=== PATIENT | male | born 1945 | race Caucasian/White ===

== ENCOUNTER 2016-08-25 10:00 | Observation (INO) | payer MEDICARE, OTHER ==
[~2016-08-25] VITALS: Ht 182.9 cm; Wt 104.3 kg
--- NOTE | ~2016-08-25 | ECHO ---
Transthoracic Echocardiography Report (TTE) Demographics Patient Name FIORDALIZA GALVEZ Date of Study 08/25/2016 D Patient Number [id number] Visit Number [id number] Date of 1945 Room Number G6338 Gender Male Number Age 71 year(s) Referring Paulo Patterson Header Dock Grisel Hinds, Physician RT,RVT,RDCS Physician Interpreting Paulo Patterson Rn Angiography Physician MD Supervising Ordering Paulo Patterson MD/MLP Physician MD Nurse Stress Anesthesiologist Physician Conclusions Contractility Score Summary Normal Left Ventricular contractility was noted. Summary Technically difficult study. Normal LV/RV size and systolic function. The estimated left ventricular ejection fraction is 65%. No significant valvular abnormalities. No evidence of pericardial effusion. Procedure Type of Study TTE procedure:2D Echocardiogram, M-Mode, Doppler , Color Doppler. Procedure Date Date: 08/25/2016 Start: 02:50 PM Study Location: Inpatient Portable Technical Quality: Adequate visualization Indications:Unstable angina. Additional Indications:Post Stent. Appropriate Use Criteria: 9 Patient Status: Routine HR: 81 bpm BP: 164/93 mmHg Allergies - No known allergies. M-Mode/2D Measurements LV Diastolic Dimension: 4.4 cm LV Systolic Dimension: 2.58 cm LV PW Diastolic: 1.53 cm LV Septum Systolic: 2.84 cm Cardiac Output: 8.16 l/min AO Root Dimension: 4.5 cm EF Estimated: 65 % LVOT: 2.1 cm LVOT VTI: 29.1 cm LV Stroke volume: 100.74 ml Doppler Measurements AV Peak Velocity: 1.58 m/s MV Peak E-Wave: 0.57 m/s AV Peak Gradient: 9.99 mmHg MV Peak A-Wave: 0.6 m/s AV Mean Gradient: 6 mmHg MV E/A Ratio: 0.94 LVOT Peak Velocity: 1.47 m/s MV P1/2t: 77 msec TR Gradient:10.89 mmHg PV Peak Velocity: 0.71 m/s Estimated RAP:10 mmHg PV Peak Gradient: 2.03 mmHg Estimated RVSP: 21 mmHg Estimated PASP: 20.89 mmHg E' Septal Velocity: 0.06 m/s A' Septal Velocity: 0.06 m/s MV E/E' Ratio: 10 Findings Left Ventricle Normal left ventricle size and function. Right Ventricle Normal right ventricle structure and function. Left Atrium Normal left atrial size. Right Atrium Normal right atrial size. IVC imaging is consistent with normal RA pressures. Mitral Valve Normal mitral valve structure and function. Trace MR. Aortic Valve Mild AV sclerosis. Tricuspid Valve Trivial tricuspid regurgitation by color Doppler. Pulmonic Valve PV is not well seen. Pericardial Effusion No evidence of pericardial effusion. Miscellaneous Visualized portions of the aortic root and ascending aorta appear normal in size. Pleural Effusion No evidence of pleural effusion. Contractility Score LV regional wall motion:(0-Non visualized 1-Normal 2-Hypokinesis 3-Akinesis 4-Dyskinesis 5-Aneurysm) Signature dtt: TUNDE BOWEN dtd: 08/25/16 [id number] Physician Self Edit
--- NOTE | ~2016-08-25 | CATH ---
Cardiac Diagnostic + PCI Report Demographics Patient Name LEONOR MANCERA Gender Male D Date of 1945 Age 71 year(s) Patient Number [id number] Date of Study 08/25/2016 Visit Number [id number] Room Number G6[address] [place] [id number] Ht 182.88 cm Wt 106 kg Referring Drew Steele Primary Physician Physician MD Jarrod Fitzgerald MD Performing [facility] Secondary Physician Physician Yesenia GRIFFIN Diagnostic [facility] Assisting Physician Physician Yesenia GRIFFIN Interventional [facility] Physician Fashion Intern Physician Yesenia GRIFFIN Findings and Conclusions Diagnostic Findings and Conclusion Obstructive lesion in mid RCA with 80% stenosis. Unstable angina. LAD and OM stents are patent. Diagnostic Recommendations PCI of RCA due to patient having ongoing chest pain and obstructive lesion in mid RCA \E\R\E\80%. Interventional Findings and Conclusion S/P PCI of mid RCA with 4.0 X 28 Promus Permier, post dilated RCA stent with NC 4.0 balloon at 18 rashaun. Interventional Recommendations Continue regular medications. Patient will be observed overnight. Hydration and followup creatinine. Continue current medications. Patient has been instructed to not lift anything more than 5 pounds for 1 week. I would like to thank for the opportunity to participate in the care of Mr. Meadows . Aggressive risk factor management. Aggressive medical therapy for coronary artery disease. ASA. Statin. Beta Vamshi. Aggressive control of blood pressure. Dual Anti-platelet therapy. Lipid lowering medication: statin will be given. Cardiac diet . Optimization of medical therapy as an outpatient. Referral to Cardiac Rehabilitation now and at discharge . The patient will be observed in telemetry overnight and if stable, the patient will be allowed to return home tomorrow. Procedure Description The patient was brought to the diagnostic cardiac catheterization-EP laboratory by emergency personal. Physician deemed procedure as EMERGENT. The planned puncture-incision site(s) were shaved and prepped with ChloraPrep and draped in the usual sterile manner. Conscious sedation, supplemental oxygen, and pain control medications were delivered by a registered nurse under physician guidance. Surface ECG rhythm, blood pressure measurement, and pulse oximetry were monitored throughout the procedure. Arterial access. The access site was infiltrated with lidocaine. The vessel was entered with the Seldinger technique. A sheath was advanced into the vessel and used for catheter placement. Selective right coronary angiography. A catheter was advanced into the right coronary vessel ostium under fluoroscopic guidance. Contrast was injected by hand. Images were obtained in multiple projections. Selective left coronary angiography. A catheter was advanced into the left coronary vessel ostium under Fluoroscopic guidance. Contrast was injected by hand. Images were obtained in multiple projections. Angioplasty and Stent Placement: A guiding catheter was used to intubate the vessel. A 0.14 wire was then used to cross the lesion. A balloon catheter was placed across the lesion and inflated. The balloon catheter was then removed. A Drug Eluting Stent was placed and inflated. Post placement angiograms were performed. Arterial artery hemostasis was achieved. The patient was transferred to a regular nursing floor via cart accompanied by a nurse. The patient left the laboratory in stable condition. Diagnostic Cath Status: Urgent Interventional Cath Status: Urgent Procedure Procedure Type Diagnostic procedure:Angiography:, Coronary Angios PCI procedure:Drug Eluting Coronary Stent:, RCA Indications: Unstable angina. The procedure was explained in detail to the patient. Risks, complications and alternative treatments were reviewed. Written consent was obtained. Medications Reviewed with Patient prior to Procedure. Angiographic Findings Dominance: Right Cardiac Arteries and Lesion Findings LMCA: Lesion on LMCA: Distal subsection.10% stenosis . LAD: Normal (0% Stenosis).There is a previous stent on Mid LAD Mid subsection showing wide patency. There is a previous stent on Prox LAD showing wide patency. LCx: Normal (0% Stenosis).There is a previous stent on Mid CX showing wide patency. RCA: PL and PDA normal Lesion on Mid RCA: Mid subsection.80% stenosis 28 mm length reduced to 0%. Pre procedure ALAN III flow was noted. Post Procedure ALAN III flow was present. The guidewire cross was successful.The lesion was diagnosed as a high risk lesion.Culprit lesion. Devices used - Runthrough NS .014 x 180. Number of passes: 1. - Emerge Balloon 2.5 x 12. 1 inflation(s) to a max pressure of: 14 rashaun. - Promus Premier 4.0 x 28 Stent. 2 inflation(s) to a max pressure of: 16 rashaun. - NC Emerge Balloon 4.0 x 15. 2 inflation(s) to a max pressure of: 18 rashaun. Coronary Tree Procedure Data Procedure Date Date: 08/25/2016Start: 11:52 AMEnd: 01:00 PM Entry Locations - Retrograde Percutaneous access was performed through the Right Radial artery (Primary location). A 6 Fr sheath was inserted. Hemostasis was successfully obtained using Mechanical Compression. Closure Comments: Vinayak Pendleton applied - 20mL of air. Procedure Medications Order and Administration + + + + + !Time !Medication !Dosage !Route ! + + + + + !08/25/2016 11:41 !Fentanyl !50 mcg !I.V. ! !AM ! ! ! ! + + + + + !08/25/2016 11:41 !Zofran !4 mg !I.V. ! !AM ! ! ! ! + + + + + 08/25/2016 11:43 !Versed !1 mg !I.V. ! !AM ! ! ! ! + + + + + !08/25/2016 11:48 !Oxygen !3 l/min !NC ! !AM ! ! ! ! + + + + + !08/25/2016 11:55 !Versed !1 mg !I.V. ! !AM ! ! ! ! + + + + + 08/25/2016 12:08 !Verapamil !3 mcg !I.A. ! !PM ! ! ! ! + + + + 08/25/2016 12:23 !Angiomax (Bivalirudin) !80 mg !I.V. bolus ! !PM !(ACC_5) ! ! ! + + + + 08/25/2016 12:23 !Angiomax (Bivalirudin) !1.75 mg/kg/hr!I.V. drip ! !PM !(ACC_5) ! ! ! + + + + + !08/25/2016 12:52 !Brilinta (Ticagrelor) !180 mg !P.O. ! !PM !(ACC_20) ! ! ! + + + + + !08/25/2016 12:54 !Oxygen ! !NC ! !PM ! ! ! ! + + + + + Devices Used - A5 Fr. BS JR 4 Diag. Catheterwas used for:Right coronary angiography. - A5 Fr. BS JL 3.5 Diag. Catheterwas used for:Left coronary angiography. - A6 Fr. JR4 Guide Catheterwas used for:Fractional Flow Bethune measurments. - A6 Fr. Guidlinerwas used for:RCA Intervention. Contrast Material - Isovue 32748 ml Fluoroscopy Time: Diagnostic: 9:42 minutes. Total: 9:42 minutes. Fluoroscopy Dose: Diagnostic: 1632 mGy. Total: 1632 mGy. Estimated Blood Loss: 20 ml. Additional [facility] PCI Information PCI Indication:PCI for high risk Non-STEMI or unstable angina. Medical History Performed Procedures and Imaging Results - No [facility] stress or imaging studies were performed. Allergies - No known allergies. Risk Factors The patient risk factors include:prior PCI;peripheral arterial disease, treated hypercholesterolemia, hypertension, last creatinine: 0.9 mg/dl, creatinine clearance: 112.87 ml/min, dyslipidemia and prior CT . Admission Data Admission Date: 08/25/2016 Admission Time: 10:45 AM Admit Source: Transfer [facility] Insurance Payors: Medicare. Admission Medications + +------+------+ + + + + !Medication !Dosage!Times !Last !Last !Administered !Comments ! ! ! !Per !Delivery !Delivery ! ! ! ! ! !Day !Date !Time ! ! ! + +------+------+ + + + + !Beta ! ! ! ! !Yes ! ! !Vamshi ! ! ! ! ! ! ! !(any) ! ! ! ! ! ! ! + +------+------+ + + + + !Statin ! ! ! ! !Yes ! ! !(any) ! ! ! ! ! ! ! + +------+------+ + + + + Clinical Evaluation Leading to Procedure - The patient's CAD presentation was assessed as: Unstable angina. - The patient's anginal syndrome during the past two weeks was assessed as: Class IV according to the [place] Cardiovascular Society Classification System (CCS). Anti-anginal medications were prescribed during the past two weeks. The medication is: Beta Blockers. Hemodynamics Condition: Rest O2 Consumption: Estimated: 268.30Heart Rate: 76 bpm Pressures (mmHg) +-----+ + !Site !Pressure ! +-----+ + !AO !125/70 (95) ! +-----+ + Shunts Oxygen Values O2 Capacity 182.24 O2 Consumption 268.3 Discharge Data Discharge Date: 08/26/2016 Hospital Status: Inpatient Signatures dtt: YESENIA BOWEN dtd: 08/25/16 1152 Physician Self Edit
--- NOTE | ~2016-08-25 | HP ---
PATIENT'S NAME: LEONOR FIORDALIZA [facility] AGE: 71 Y [address] ROOM: [place] [address] LOCATION: GPCU ADMIT DATE: 08/25/2016 History & Physical DISCHARGE DATE: FAMILY PHYSICIAN: PHYSICIAN, UNKNOWN ATTENDING PHYSICIAN: TUNDE BOWEN DATE OF SERVICE: CHIEF COMPLAINT: Chest pain. HISTORY OF PRESENTING ILLNESS: A 71-year-old male complains of chest pain that is substernal and it is also tight. It started last night, and the pain was about 3 on pain scale. He has had recurrent episodes of this that woke him up from his sleep about two to three times last night. They lasted about 20 minutes or so. He does not have any diaphoresis, nausea, or vomiting. He had recurrent chest pain again this morning that woke him up from his sleep, and he finally decided to get evaluated in his local Emergency Room at [facility]. He is a patient who follows in [place]; however, the patient is moving to [place], and requested to be transferred to [facility] if he needs further workup. He has had history of PR and stents to his OM as well as LAD in the past. This pain reminds him of the pain he had when he had his heart attack. During interview, the patient had pain about 4 on pain scale, and he reported it was getting worse. So, it was decided to take him urgently to the Cardiac Daytime Babysitter. The patient does not have any fever, chills, or changes in his strength sensation. No nausea, vomiting, diaphoresis, constipation, recent skin rashes, or travel. He does not have any headaches. No changes in speech. He does not have any changes in his vision. No sinus discharge. No other acute complaints at this visit. REVIEW OF SYSTEMS: All review of systems were discussed with the patient. Pertinent positives and negatives as mentioned in the history of presenting illness. PAST MEDICAL HISTORY: 1. PR in 2000 with stents x3. 2. Hypertension. 3. Hyperlipidemia. PAST SURGICAL HISTORY: [facility] AGE: 71 Y [address] ROOM: [address] [place] [id number] LOCATION: GPCU ADMIT DATE: 08/25/2016 History & Physical DISCHARGE DATE: FAMILY PHYSICIAN: PHYSICIAN, UNKNOWN ATTENDING PHYSICIAN: TUNDE BOWEN 1. He had AAA repair in 2010. 2. He also had rotator cuff surgery on the left in 2011 and right side in 2013. ALLERGIES: NO KNOWN DRUG ALLERGIES. MEDICATIONS: He is on 1. Zocor 80 mg daily. 2. Omeprazole 20 daily. 3. Metoprolol 25 b.i.d. 4. Feosol 325 daily. 5. Aspirin 81 daily. 6. Multivitamins one tablet daily. SOCIAL HISTORY: The patient is and retired. He has two kids. The patient does not smoke. No illicit drug abuse or alcohol abuse. FAMILY HISTORY: No history of premature coronary artery disease or sudden cardiac . PHYSICAL EXAMINATION: VITAL SIGNS: Blood pressure was 160/80, afebrile, pulse was 70, respirations were 16, and O2 sats were 95% on room air. HEENT: PERRLA. Extraocular movements are intact. Atraumatic. Mucous membranes are moist. GENERAL: The patient is not in any apparent distress. He is alert and awake and oriented to time, place, and person. CARDIOVASCULAR: S1 and S2. Regular rate and rhythm. No murmurs, gallops, or rubs. RESPIRATORY: Clear to auscultation bilaterally. ABDOMEN: Soft. Bowel sounds are positive. MUSCULOSKELETAL: Full range of motion. Good strength. Able to move all extremities against gravity. NEUROLOGIC: Grossly intact. SKIN: Warm and dry. EXTREMITIES: Lower extremities, no significant lower extremities edema. LABORATORY DATA AND DIAGNOSTIC STUDIES: EKG with early repolarization changes. There is 1-mm ST-elevation in lead II, as well as IV, V, and without any significant ST depressions; sinus rhythm. Glucose of 156, BUN of 13, creatinine of 0.95, total protein of 7.1, ALT of [facility] AGE: 71 Y [address] ROOM: G[address]338 [place], [place] [address] [facility] AD[facility] DATE: 08/25/2016 History & Physical DISCHARGE DATE: FAMILY PHYSICIAN: PHYSICIAN, UNKNOWN ATTENDING PHYSICIAN: TUNDE BOWEN 28, AST of 22, sodium of 134, potassium of 3.8, GFR greater than 60, and alkaline phosphatase of 77. Creatine kinase is 278, CK-MB is 2.4, and troponin is less than 0.02. Magnesium is 1.4. WBC was 7.4, H and H were 13.4 and 38.1, and platelets were 203. Telemetry strips were showing increasing ST-elevation in leads II en route via ambulance from [place]. IMPRESSION AND PLAN: 1. Unstable angina with ongoing chest pain that is getting worse. The ECG changes on tele look a little bit worse. There is ST elevation in antlat leads likely early repolarization. However, given that the patient has worsening chest pain and h/o CAD/PR, I felt it was best to proceed with heart catheterization, especially given history of previous myocardial infarction and symptoms similar to previous myocardial infarction. The risks and benefits were discussed with the patient. The patient was agreeable to proceed with heart catheterization. Risk of bleeding, bruising, and infection 1 in 100 cases risk of heart attack, , stroke, emergency bypass, transient ischemic attack, and stroke are less than 1 in 1000 cases. The patient does not have any contrast allergies. He is a good candidate for DAPT. So, the patient is agreeable to proceed with heart catheterization at this time. 2. History of abdominal aortic aneurysm repair. Continue aspirin and statin. 3. Hypertension. We will optimize his medications for hyperlipidemia. His LDL goal is less than 70. The patient was given aspirin, as well as started on heparin drip prior to transfer. Further plan after the heart cath is done. We will admit to PCU after taking the patient to the Daytime Babysitter depending on the findings. TUNDE BOWEN MD AT/modl /[id number] D: T: HISTORY & PHYSICAL
[2016-08-25 11:16] LABS: CPK 252 IU/L (35-332)
--- NOTE | 2016-08-25 13:57 | NUR ---
Pt is 71 y/o male admit for chest pain for . Pt alert and oriented x3. Resides at home with his . No allergies. Hx htn,hypercholest,ID,stents, triple A w repair,gerd,heartburn. Pt states his chest pain started last evening but was more of a back ache then moved to his sternum. He reports he really noticed it during the night at 0200. Woke up again 2 more times with sternum pain. Went to clinic when it opened and was sent to ED. had lab and EKG along with 4 baby aspirin. Pt went to [facility] lab technician on arrival with stent to RCA, R)radial approach.
[2016-08-25] MEDS ORDERED: SIMVASTATIN80 MG PO (14:02)
[2016-08-25] MEDS ORDERED: LOPRESSOR50 MG PO (14:02)
[2016-08-25] MEDS ORDERED: PRILOSEC20 MG PO (14:02)
[2016-08-25] MEDS ORDERED: IRON325 M1 PO (14:03)
[2016-08-25] MEDS ORDERED: ASPIRIN (CHILDR81 MG PO (14:03)
[2016-08-25] MEDS ORDERED: THERA-VITE W/ B1 TAB PO (14:04)
--- NOTE | 2016-08-25 17:41 | NUR ---
A&O. VSS. AFEBRILE. RA. SBP 150'S. HR 70'S. LS CLEAR. NO C/O PAIN. NO CX PAIN. PAIN WHEN DEEP BREATH. R BAND TO R RADIAL OFF. IV SL TO FA. IV TO RADHA. CSM WNL. NS @100. AT BEDSIDE PLAN IS HOME TOMORROW.
[2016-08-25 22:03] LABS: CPK 188 IU/L (35-332)
--- NOTE | 2016-08-26 05:12 | NUR ---
Significant Event: A/O x3. VSS on RA-2L. SBP 130-150s. HR 80s. C/O chest pain 3/10 with rest, 7/10 with activity. Nitro sg tab given, nitro gtt started @ 5mcg. Pt felt SOB with activity. Applied 2L. Stat EKG, CXray done. No changes from previous testing. CT scan with and without contrast, no new changes. Nitro gtt stopped @0200, pt comfortable w/ no pain. Imdur started for AM. Needs to be reminded to call to get out of bed. Follow up: Continue to monitor per plan of care.
[2016-08-26 05:57] LABS: ALBUMIN 3.3 gm/dL (3.5-5.0); ALK PHOS 58 IU/L (33-138); ALT 22 IU/L (12-78); ANION GAP 12.9 (10.0-19.0); AST 15 IU/L (10-40); BLOOD UREA NITROGEN 10 mg/dL (6-24); CALCIUM 8.3 mg/dL (8.5-10.5); CHLORIDE 100 mMol/L (96-110); CO2 25 mMol/L (22-32); CREATININE 0.9 mg/dL (0.6-1.3); ESTIMATED GFR (MDRD EQUATION) > 60; POTASSIUM 3.9 mMol/L (3.7-5.1); SODIUM 134 mMol/L (135-145); TOTAL BILIRUBIN 0.6 mg/dL (0.0-1.5); TOTAL PROTEIN 6.6 g/dL (6.0-8.4)
[2016-08-26] MEDS ORDERED: LIPITOR40 MG PO (08:46)
[2016-08-26] MEDS ORDERED: IMDUR30 MG PO (08:47)
[2016-08-26] MEDS ORDERED: NITROSTAT0.4 MG SL (08:49)
[2016-08-26] MEDS ORDERED: BRILINTA90 MG PO (08:49)
--- NOTE | 2016-08-26 11:35 | NUR ---
DISM.NOTE: REVIEW OF HOME MEDS AND NEW MEDS WITH HANDOUTS AND SIDE EFFECTS DISCUSSED. PRESCRIPTIONS GIVEN AND REINFORCED THAT THOSE PAPERS ARE TO GO TO A PHARMACY. INSTRUCTED ON HOW TO USE NITROSTAT. DIET/ ACTIVITY. FOLLOW UP APPT. INSTRUCTIONS POST RADIAL HEART CATH. PT. AND VOICED UNDERSTANDING
== END 2016-08-26 10:45 | disposition disaster alternative care site (69) ==
LOC: GPCU 10:00 → EDSTATUS 10:00 → GPCU 10:45 → EDBD 10:45 → GPCU 10:45
PROVIDERS: Family Medicine; ADMIT Internal Medicine Interventional Cardiology
DX: I20.0 Unstable angina (principal); I10 Essential (primary) hypertension; E78.5 Hyperlipidemia, unspecified; I25.2 Old myocardial infarction; Z79.82 Long term (current) use of aspirin; Z79.899 Other long term (current) drug therapy; Z98.890 Other specified postprocedural states
CPT/HCPCS: C1725; C1769; C1874; C1887; C9600; G0378; J0583; J1644; J1940; J2250; J2405; J3010; J7030; J7060; Q9967